=== PATIENT | male | born 1940 | race Caucasian/White ===

== ENCOUNTER 2016-12-05 19:32 | Emergency (ER) | payer OTHER, MEDICARE ==
[~2016-12-05] VITALS: Ht 170.2 cm; Wt 96.2 kg
[~2016-12-05 19:32] MED LIST: ASPIRIN 32325 MG/TAB PO; FUROSEMIDE20 MG PO; LIPITOR 80MG80 MG PO; LISINOPRIL-HYDR1 TA1 PO; LOPRESSOR100 M1 PO; LOPRESSOR100 MG PO; NIASPAN500 MG PO; NIFEDIAC CC60 MG PO; NITROGLYCERIN0.4 M1 SL; NITROGLYCERIN0.4 MG SL; NORCO 325 MG-51 TA1 PO; ZITHROMAX 250M250 MG PO; ZYLOPRIM 300MG300 MG PO
[2016-12-05] MEDS ORDERED: LOW DOSE ASPIRI81 M1 PO (20:03)
[2016-12-05] MEDS ORDERED: LASIX20 M1 PO (20:03)
[2016-12-05] MEDS ORDERED: ZYLOPRIM300 MG PO (20:04)
[2016-12-05] MEDS ORDERED: METOPROLOL SUCC25 M1 (20:04)
[2016-12-05] MEDS ORDERED: LIPITOR 40MG TA40 MG PO (20:05)
[2016-12-05] MEDS ORDERED: ZESTORETIC 20-1 EACH PO (20:05)
[2016-12-05] MEDS ORDERED: TOPROL XL100 MG PO (21:02)
[2016-12-05 23:06] VITALS: BP 146/69
== END 2016-12-05 23:06 | disposition home or self-care (01) ==
LOC: ED 19:32
DX: R07.9 Chest pain, unspecified (principal); R06.02 Shortness of breath; I10 Essential (primary) hypertension; I25.10 Atherosclerotic heart disease of native coronary artery without angina pectoris; Z95.1 Presence of aortocoronary bypass graft; Z95.5 Presence of coronary angioplasty implant and graft; Z87.891 Personal history of nicotine dependence; I25.2 Old myocardial infarction; Z86.73 Personal history of transient ischemic attack (TIA), and cerebral infarction without residual deficits; Z96.643 Presence of artificial hip joint, bilateral; Z86.39 Personal history of other endocrine, nutritional and metabolic disease; R00.1 Bradycardia, unspecified

== ENCOUNTER → 2017-07-23 | Outpatient (CLI) | payer OTHER, MEDICARE ==
[~2017-07-23] MED LIST changes: +LASIX20 M1 PO; +LIPITOR 40MG TA40 MG PO; +LOW DOSE ASPIRI81 M1 PO; +METOPROLOL SUCC25 M1; +TOPROL XL100 MG PO; +ZESTORETIC 20-1 EACH PO; +ZYLOPRIM300 MG PO
== END ==
LOC: RAD 12:53
DX: I65.23 Occlusion and stenosis of bilateral carotid arteries (principal); I25.10 Atherosclerotic heart disease of native coronary artery without angina pectoris; E78.5 Hyperlipidemia, unspecified; I10 Essential (primary) hypertension; Z86.73 Personal history of transient ischemic attack (TIA), and cerebral infarction without residual deficits

== ENCOUNTER → 2017-07-30 | Outpatient (CLI) | payer OTHER, MEDICARE ==
[2017-07-30 13:52] LABS: EOS # 0.4 (0.04-0.40); EOS % 3.8 % (0.0-4.0); HEMOGLOBIN 11.6 g/dL (13.5-18.0); LYMPH# 2.8 (1.50-4.00); MEAN CELL VOLUME 94 fl (78-100); MEAN CORPUSCULAR HEMOGLOBIN 29 pg (27-31); MEAN CORPUSCULAR HGB CONC 31 g/dL (33-37); MONO # 0.9 (0.20-0.80); NEU # 6.9 (1.40-6.50); PLATELET COUNT 235 K/mm3 (130-400); RED BLOOD COUNT 4.06 M/mm3 (4.20-5.60); RED CELL DISTRIBUTION WIDTH 14.6 % (11.5-14.5)
[2017-07-30 14:08] LABS: ALBUMIN 4.1 g/dL (3.5-5.0); BUN/CREATININE RATIO 30.2 (6.0-26.0); CALCIUM 9.4 mg/dL (8.4-10.2); POTASSIUM 3.8 mmol/L (3.6-5.0); TOTAL BILIRUBIN 0.3 mg/dL (0.2-1.3); TOTAL PROTEIN 7.8 g/dL (6.3-8.2)
== END ==
LOC: LAB 13:33
PROVIDERS: Family Medicine
DX: E66.9 Obesity, unspecified (principal); E11.9 Type 2 diabetes mellitus without complications

== ENCOUNTER → 2017-08-05 | Outpatient (CLI) | payer OTHER, MEDICARE | LOC: LAB 11:49 | DX: R05 Cough (principal) ==

== ENCOUNTER 2018-05-13 22:20 | Emergency (ER) | payer OTHER, MEDICARE ==
[~2018-05-13] VITALS: Ht 170.2 cm; Wt 90.9 kg
[2018-05-13 22:55] LABS: EOS # 0.5 (0.04-0.40); EOS % 4.3 % (0.0-4.0); HEMATOCRIT 37.5 % (42.0-52.0); HEMOGLOBIN 12.3 g/dL (13.5-18.0); LYMPH# 3.1 (1.50-4.00); MEAN CELL VOLUME 92 fl (78-100); MEAN CORPUSCULAR HEMOGLOBIN 30 pg (27-31); MEAN CORPUSCULAR HGB CONC 33 g/dL (33-37); MEAN PLATELET VOLUME 12.1 fl (7.4-10.4); NEU # 7.3 (1.40-6.50); PLATELET COUNT 213 K/mm3 (130-400); RED BLOOD COUNT 4.09 M/mm3 (4.20-5.60); RED CELL DISTRIBUTION WIDTH 14.9 % (11.5-14.5)
[2018-05-13] MEDS ORDERED: METOPROLOL TAR100 M1 PO (23:00)
[2018-05-13] MEDS ORDERED: MEDI-FIRST ASP325 MG PO (23:02)
[2018-05-13] MEDS ORDERED: LIPITOR 80MG80 MG PO (23:02)
[2018-05-13] MEDS ORDERED: LASIX20 M1 PO (23:03)
[2018-05-13] MEDS ORDERED: ZESTORETIC 20-1 EACH PO (23:03)
[2018-05-13] MEDS ORDERED: ZYLOPRIM300 MG PO (23:04)
[2018-05-13] MEDS ORDERED: INDDOCIN PO (23:05)
[2018-05-13] MEDS ORDERED: NORCO 325 MG-51 TA1 PO (23:05)
[2018-05-13] MEDS ORDERED: COLACE100 M1 PO (23:06)
[2018-05-13] MEDS ORDERED: ZESTRIL5 M1 PO (23:06)
[2018-05-13 23:11] LABS: ALBUMIN 4.1 g/dL (3.5-5.0); CALCIUM 9.7 mg/dL (8.4-10.2); POTASSIUM 3.3 mmol/L (3.6-5.0); TOTAL BILIRUBIN 0.7 mg/dL (0.2-1.3); TOTAL PROTEIN 7.4 g/dL (6.3-8.2)
[2018-05-13 23:24] LABS: TROPONIN-I < 0.03 ng/mL (0.00-0.06)
[2018-05-13 23:45] LABS: PARTIAL THROMBOPLASTIN TIME 22.3 SECONDS (21.0-32.0); PROTHROMBIN TIME 10.4 SECONDS (9.0-12.0)
[2018-05-13 23:47] LABS: D-DIMER 0.67 mg/L FEU (0.15-0.50)
[2018-05-14 00:01] LABS: URINE APPEARANCE HAZY; URINE BILIRUBIN NEGATIVE (NEGATIVE); URINE BLOOD NEGATIVE (NEGATIVE); URINE COLOR YELLOW; URINE GLUCOSE NEGATIVE (NEGATIVE); URINE KETONE NEGATIVE (NEGATIVE); URINE LEUKOCYTE ESTERASE NEGATIVE (NEGATIVE); URINE MUCUS PRESENT (NOT PRESENT); URINE NITRATE NEGATIVE (NEGATIVE); URINE PROTEIN(semi-quant) NEGATIVE (NEGATIVE); URINE UROBILINOGEN NORMAL (NORMAL); URINE WBC 0-1 /hpf (0-3)
[2018-05-14] MEDS ORDERED: CEFDINIR300 MG PO (02:26)
[2018-05-14] MEDS ORDERED: POTASSIUM CHLO10 ME6 PO (02:26)
[2018-05-14 02:37] VITALS: BP 124/60
== END 2018-05-14 02:37 | disposition home or self-care (01) ==
LOC: ED 22:20
PROVIDERS: Physician Assistant
DX: J40 Bronchitis, not specified as acute or chronic (principal); E87.6 Hypokalemia; I25.10 Atherosclerotic heart disease of native coronary artery without angina pectoris; Z87.891 Personal history of nicotine dependence; I25.2 Old myocardial infarction; E78.5 Hyperlipidemia, unspecified; Z95.5 Presence of coronary angioplasty implant and graft; Z95.1 Presence of aortocoronary bypass graft; Z79.82 Long term (current) use of aspirin; Z79.899 Other long term (current) drug therapy
CPT/HCPCS: Q9967

== ENCOUNTER → 2018-06-03 | Outpatient (CLI) | payer OTHER, MEDICARE ==
[2018-05-14 02:37] VITALS: BP 124/60
[~2018-06-03] MED LIST changes: +CEFDINIR300 MG PO; +COLACE100 M1 PO; +INDDOCIN PO; +MEDI-FIRST ASP325 MG PO; +METOPROLOL TAR100 M1 PO; +POTASSIUM CHLO10 ME6 PO; +ZESTRIL5 M1 PO
[2018-06-03 10:23] LABS: BASO # 0.1 (0.02-0.10); EOS # 0.6 (0.04-0.40); EOS % 4.5 % (0.0-4.0); HEMATOCRIT 39.9 % (42.0-52.0); HEMOGLOBIN 12.6 g/dL (13.5-18.0); MEAN CELL VOLUME 93 fl (78-100); MEAN CORPUSCULAR HEMOGLOBIN 29 pg (27-31); MEAN CORPUSCULAR HGB CONC 32 g/dL (33-37); NEU # 7.8 (1.40-6.50); PLATELET COUNT 215 K/mm3 (130-400); RED BLOOD COUNT 4.28 M/mm3 (4.20-5.60); RED CELL DISTRIBUTION WIDTH 14.9 % (11.5-14.5); WHITE BLOOD COUNT 12.5 K/mm3 (4.8-10.8)
[2018-06-03 10:51] LABS: MEAN PLATELET VOLUME 12.2 fl (7.4-10.4)
[2018-06-03 11:11] LABS: ALBUMIN 4.4 g/dL (3.5-5.0); CALCIUM 9.7 mg/dL (8.4-10.2); POTASSIUM 4.2 mmol/L (3.6-5.0); TOTAL BILIRUBIN 0.5 mg/dL (0.2-1.3); TOTAL PROTEIN 7.6 g/dL (6.3-8.2)
== END ==
LOC: LAB 10:06
PROVIDERS: Family Medicine
DX: M1A.9XX0 Chronic gout, unspecified, without tophus (tophi) (principal); E11.9 Type 2 diabetes mellitus without complications; E78.5 Hyperlipidemia, unspecified

== ENCOUNTER → 2018-08-21 | Outpatient (CLI) | payer OTHER, MEDICARE | LOC: CARDREHAB 07:37 | DX: E78.2 Mixed hyperlipidemia (principal); I25.10 Atherosclerotic heart disease of native coronary artery without angina pectoris | CPT/HCPCS: A9500 ==

== ENCOUNTER → 2018-11-11 | Outpatient (CLI) | payer OTHER, MEDICARE ==
[2018-11-11 14:55] LABS: EOS # 0.5 (0.04-0.40); EOS % 4.4 % (0.0-4.0); HEMATOCRIT 40.3 % (42.0-52.0); HEMOGLOBIN 12.6 g/dL (13.5-18.0); LYMPH# 3.1 (1.50-4.00); MEAN CELL VOLUME 92 fl (78-100); MEAN CORPUSCULAR HEMOGLOBIN 29 pg (27-31); MEAN CORPUSCULAR HGB CONC 31 g/dL (33-37); NEU # 6.2 (1.40-6.50); PLATELET COUNT 201 K/mm3 (130-400); RED BLOOD COUNT 4.39 M/mm3 (4.20-5.60); WHITE BLOOD COUNT 10.8 K/mm3 (4.8-10.8)
[2018-11-11 15:00] LABS: MEAN PLATELET VOLUME 12.2 fl (7.4-10.4)
[2018-11-11 15:14] LABS: CALCIUM 10.2 mg/dL (8.8-10.0); POTASSIUM 3.8 mmol/L (3.5-5.1); TOTAL BILIRUBIN 0.5 mg/dL (0.2-1.2); TOTAL PROTEIN 7.5 g/dL (6.2-8.1)
== END ==
LOC: LAB 14:28
PROVIDERS: Family Medicine
DX: Z12.5 Encounter for screening for malignant neoplasm of prostate (principal); Z87.438 Personal history of other diseases of male genital organs; R53.83 Other fatigue

== ENCOUNTER → 2018-11-30 | Day surgery (SDC) | payer OTHER, MEDICARE | LOC: MSO 08:50 | DX: K57.30 Diverticulosis of large intestine without perforation or abscess without bleeding (principal); K92.1 Melena; I25.10 Atherosclerotic heart disease of native coronary artery without angina pectoris; I10 Essential (primary) hypertension; E11.9 Type 2 diabetes mellitus without complications; G47.33 Obstructive sleep apnea (adult) (pediatric); Z87.891 Personal history of nicotine dependence; Z95.1 Presence of aortocoronary bypass graft; Z79.82 Long term (current) use of aspirin | CPT/HCPCS: 00812; J2310; J2704; J3010; J7030 ==

== ENCOUNTER 2019-03-27 11:09 | Emergency (ER) | payer OTHER, MEDICARE ==
[~2019-03-27] VITALS: Ht 170.2 cm; Wt 95.5 kg
[2019-03-27 12:03] LABS: EOS # 0.5 (0.04-0.40); EOS % 4.3 % (0.0-4.0); HEMATOCRIT 37.3 % (42.0-52.0); HEMOGLOBIN 11.9 g/dL (13.5-18.0); LYMPH# 2.8 (1.50-4.00); MEAN CELL VOLUME 93 fl (78-100); MEAN CORPUSCULAR HEMOGLOBIN 30 pg (27-31); MEAN CORPUSCULAR HGB CONC 32 g/dL (33-37); MONO # 0.9 (0.20-0.80); NEU # 6.4 (1.40-6.50); PLATELET COUNT 194 K/mm3 (130-400); RED BLOOD COUNT 4.01 M/mm3 (4.20-5.60); RED CELL DISTRIBUTION WIDTH 14.8 % (11.5-14.5); WHITE BLOOD COUNT 10.6 K/mm3 (4.8-10.8)
[2019-03-27 12:11] LABS: MEAN PLATELET VOLUME 12.5 fl (7.4-10.4)
[2019-03-27 12:16] LABS: D-DIMER 0.82 mg/L FEU (0.15-0.50)
[2019-03-27 12:24] LABS: ALBUMIN 3.6 g/dL (3.4-4.8)
[2019-03-27 12:25] LABS: CALCIUM 9.1 mg/dL (8.3-10.5)
[2019-03-27 12:27] LABS: TOTAL PROTEIN 6.6 g/dL (6.2-8.1)
[2019-03-27 12:28] LABS: TOTAL BILIRUBIN 0.4 mg/dL (0.2-1.2)
[2019-03-27 13:40] VITALS: BP 134/80
== END 2019-03-27 13:40 | disposition home or self-care (01) ==
LOC: ED 11:09
PROVIDERS: Family Medicine
DX: I25.10 Atherosclerotic heart disease of native coronary artery without angina pectoris (principal); I11.0 Hypertensive heart disease with heart failure; I50.1 Left ventricular failure, unspecified; E78.5 Hyperlipidemia, unspecified; G47.30 Sleep apnea, unspecified; M10.9 Gout, unspecified; Z98.890 Other specified postprocedural states

== ENCOUNTER 2019-06-18 08:51 | Emergency (ER) | payer OTHER, MEDICARE ==
[~2019-06-18] VITALS: Ht 170.2 cm; Wt 90.3 kg
[2019-06-18 09:01] VITALS: BP 122/52
[2019-06-18] MEDS ORDERED: POTASSIUM CHLO10 ME7 PO (09:14)
[2019-06-18 09:36] LABS: EOS # 0.5 (0.04-0.40); HEMATOCRIT 36.6 % (42.0-52.0); HEMOGLOBIN 11.3 g/dL (13.5-18.0); LYMPH# 2.9 (1.50-4.00); MEAN CELL VOLUME 94 fl (78-100); MEAN CORPUSCULAR HEMOGLOBIN 29 pg (27-31); MEAN CORPUSCULAR HGB CONC 31 g/dL (33-37); NEU # 4.8 (1.40-6.50); PLATELET COUNT 188 K/mm3 (130-400); RED BLOOD COUNT 3.91 M/mm3 (4.20-5.60); RED CELL DISTRIBUTION WIDTH 15.2 % (11.5-14.5); WHITE BLOOD COUNT 9.2 K/mm3 (4.8-10.8)
[2019-06-18 09:37] LABS: EOS % 5.4 % (0.0-4.0); MEAN PLATELET VOLUME 12.2 fl (7.4-10.4)
[2019-06-18] MEDS ORDERED: GOOD NEIGHBOR P20 M1 PO (10:07)
== END 2019-06-18 10:22 | disposition home or self-care (01) ==
LOC: ED 08:51
PROVIDERS: Family Medicine
DX: K21.9 Gastro-esophageal reflux disease without esophagitis (principal); I25.10 Atherosclerotic heart disease of native coronary artery without angina pectoris; I10 Essential (primary) hypertension; E78.5 Hyperlipidemia, unspecified; Z95.5 Presence of coronary angioplasty implant and graft; Z95.1 Presence of aortocoronary bypass graft; Z98.890 Other specified postprocedural states

== ENCOUNTER → 2019-07-14 | Day surgery (SDC) | payer MEDICARE, OTHER ==
[2019-06-18 09:01] VITALS: BP 122/52
[~2019-07-14] MED LIST changes: +GOOD NEIGHBOR P20 M1 PO; +POTASSIUM CHLO10 ME7 PO
== END ==
LOC: MSO 09:37
DX: H26.492 Other secondary cataract, left eye (principal); I11.0 Hypertensive heart disease with heart failure; I50.9 Heart failure, unspecified; Z96.643 Presence of artificial hip joint, bilateral; Z79.82 Long term (current) use of aspirin

== ENCOUNTER → 2019-08-18 | Day surgery (SDC) | payer MEDICARE, OTHER | LOC: MSO 11:06 | DX: H26.491 Other secondary cataract, right eye (principal); I25.2 Old myocardial infarction; I11.0 Hypertensive heart disease with heart failure; I50.9 Heart failure, unspecified; Z79.82 Long term (current) use of aspirin; Z79.899 Other long term (current) drug therapy ==

== ENCOUNTER → 2019-11-01 | Emergency (ER) | payer MEDICARE, OTHER ==
[~2019-11-01] VITALS: Ht 170.2 cm; Wt 90.7 kg
[~2019-11-01] MED LIST changes: +MIRALAX17 GM PO
[2019-11-01 16:23] VITALS: BP 165/92
[2019-11-01 16:43] LABS: BASO # 0.1 (0.02-0.10); EOS # 0.3 (0.04-0.40); EOS % 2.5 % (0.0-4.0); HEMATOCRIT 38.8 % (42.0-52.0); HEMOGLOBIN 11.9 g/dL (13.5-18.0); LYMPH# 2.3 (1.50-4.00); MEAN CELL VOLUME 95 fl (78-100); MEAN CORPUSCULAR HEMOGLOBIN 29 pg (27-31); MEAN CORPUSCULAR HGB CONC 31 g/dL (33-37); MONO # 0.6 (0.20-0.80); PLATELET COUNT 211 K/mm3 (130-400); RED BLOOD COUNT 4.08 M/mm3 (4.20-5.60); RED CELL DISTRIBUTION WIDTH 15.1 % (11.5-14.5); WHITE BLOOD COUNT 12.6 K/mm3 (4.8-10.8)
[2019-11-01 16:45] LABS: ALBUMIN 4.2 g/dL (3.4-4.8)
[2019-11-01 16:46] LABS: SODIUM 142 mmol/L (136-145)
[2019-11-01 16:47] LABS: CALCIUM 9.8 mg/dL (8.3-10.5)
[2019-11-01 16:48] LABS: GLUCOSE 119 mg/dL (75-110); TOTAL PROTEIN 8.1 g/dL (6.2-8.1)
[2019-11-01 16:49] LABS: CARBON DIOXIDE 27 mmol/L (23-31)
[2019-11-01 16:50] LABS: PARTIAL THROMBOPLASTIN TIME 21.6 SECONDS (21.0-32.0); PROTHROMBIN TIME 10.3 SECONDS (9.0-12.0); TOTAL BILIRUBIN 0.5 mg/dL (0.2-1.2)
[2019-11-01 16:53] LABS: AST-SGOT 21 U/L (5-34)
[2019-11-01 16:54] LABS: ALT/SGPT 12 U/L (0-55); MEAN PLATELET VOLUME 12.3 fl (7.4-10.4); NEU # 9.3 (1.40-6.50)
[2019-11-01 17:02] LABS: URINE APPEARANCE CLEAR; URINE COLOR LT YELLOW
[2019-11-01 17:02] LABS: TROPONIN-I < 0.03 ng/mL (<0.030)
[2019-11-01 17:03] LABS: URINE BILIRUBIN NEGATIVE (NEGATIVE); URINE BLOOD NEGATIVE (NEGATIVE); URINE GLUCOSE NEGATIVE (NEGATIVE); URINE KETONE NEGATIVE (NEGATIVE); URINE LEUKOCYTE ESTERASE NEGATIVE (NEGATIVE); URINE NITRATE NEGATIVE (NEGATIVE); URINE PROTEIN(semi-quant) NEGATIVE (NEGATIVE); URINE UROBILINOGEN NORMAL (NORMAL); URINE WBC 0 /hpf (0-3)
== END ==
LOC: ED 15:41
PROVIDERS: Nurse Practitioner
DX: R11.0 Nausea (principal); R53.81 Other malaise; R42 Dizziness and giddiness; I10 Essential (primary) hypertension; E78.5 Hyperlipidemia, unspecified; I25.10 Atherosclerotic heart disease of native coronary artery without angina pectoris; Z87.891 Personal history of nicotine dependence
CPT/HCPCS: J2405; J7040

== ENCOUNTER → 2019-11-08 | Outpatient (CLI) | payer MEDICARE, OTHER ==
[2019-11-01 16:23] VITALS: BP 165/92
[2019-11-08 13:17] LABS: POTASSIUM 4.1 mmol/L (3.5-5.1)
[2019-11-08 13:19] LABS: CALCIUM 9.5 mg/dL (8.3-10.5)
== END ==
LOC: LAB 12:48 → RAD 12:48
PROVIDERS: Family Medicine
DX: M51.36 Other intervertebral disc degeneration, lumbar region (principal); I10 Essential (primary) hypertension; I25.10 Atherosclerotic heart disease of native coronary artery without angina pectoris; E11.9 Type 2 diabetes mellitus without complications; Z96.641 Presence of right artificial hip joint

== ENCOUNTER 2019-12-21 09:00 | Outpatient (RCR) | payer MEDICARE, OTHER ==
[2019-11-01 16:23] VITALS: BP 165/92
== END 2019-12-21 09:30 | disposition still patient (30) ==
LOC: PT 09:00
DX: M54.5 Low back pain (principal); I10 Essential (primary) hypertension; I25.10 Atherosclerotic heart disease of native coronary artery without angina pectoris; E11.9 Type 2 diabetes mellitus without complications

== ENCOUNTER 2020-03-30 22:18 | Emergency (ER) | payer MEDICARE, OTHER ==
[~2020-03-30] VITALS: Ht 170.2 cm; Wt 86.2 kg
[2020-03-30 23:28] LABS: EOS # 0.4 (0.04-0.40); EOS % 3.6 % (0.0-4.0); HEMATOCRIT 38.8 % (42.0-52.0); HEMOGLOBIN 11.9 g/dL (13.5-18.0); LYMPH# 2.8 (1.50-4.00); MEAN CELL VOLUME 89 fl (78-100); MEAN CORPUSCULAR HEMOGLOBIN 27 pg (27-31); MEAN CORPUSCULAR HGB CONC 31 g/dL (33-37); MEAN PLATELET VOLUME 11.7 fl (7.4-10.4); PLATELET COUNT 220 K/mm3 (130-400); RED BLOOD COUNT 4.34 M/mm3 (4.20-5.60); RED CELL DISTRIBUTION WIDTH 15.3 % (11.5-14.5); WHITE BLOOD COUNT 11.3 K/mm3 (4.8-10.8)
[2020-03-30 23:34] LABS: ALBUMIN 3.6 g/dL (3.4-4.8)
[2020-03-30 23:35] LABS: POTASSIUM 3.8 mmol/L (3.5-5.1)
[2020-03-30 23:36] LABS: CALCIUM 9.1 mg/dL (8.3-10.5)
[2020-03-30 23:37] LABS: TOTAL PROTEIN 6.8 g/dL (6.2-8.1)
[2020-03-30 23:39] LABS: TOTAL BILIRUBIN 0.5 mg/dL (0.2-1.2)
[2020-03-31 00:12] VITALS: BP 154/74
== END 2020-03-31 00:15 | disposition home or self-care (01) ==
LOC: ED 22:18
PROVIDERS: Nurse Practitioner Primary Care
DX: G44.89 Other headache syndrome (principal); I10 Essential (primary) hypertension; I25.10 Atherosclerotic heart disease of native coronary artery without angina pectoris; Z86.73 Personal history of transient ischemic attack (TIA), and cerebral infarction without residual deficits; Z95.5 Presence of coronary angioplasty implant and graft; Z79.82 Long term (current) use of aspirin

== ENCOUNTER 2020-05-23 14:15 | Observation (INO) | payer MEDICARE, OTHER ==
[~2020-05-23] VITALS: Ht 170.2 cm; Wt 85.3 kg
[2020-05-23 15:21] LABS: EOS # 0.4 (0.04-0.40); EOS % 4.9 % (0.0-4.0); HEMATOCRIT 46.5 % (42.0-52.0); HEMOGLOBIN 14.6 g/dL (13.5-18.0); MEAN CELL VOLUME 89 fl (78-100); MEAN CORPUSCULAR HEMOGLOBIN 28 pg (27-31); MEAN CORPUSCULAR HGB CONC 31 g/dL (33-37); MONO # 0.6 (0.20-0.80); NEU # 4.7 (1.40-6.50); PLATELET COUNT 182 K/mm3 (130-400); RED BLOOD COUNT 5.23 M/mm3 (4.20-5.60); WHITE BLOOD COUNT 7.7 K/mm3 (4.8-10.8)
[2020-05-23 15:23] LABS: ALBUMIN 3.7 g/dL (3.4-4.8); POTASSIUM 3.8 mmol/L (3.5-5.1)
[2020-05-23 15:24] LABS: CALCIUM 9.4 mg/dL (8.3-10.5); MEAN PLATELET VOLUME 12.4 fl (7.4-10.4)
[2020-05-23 15:26] LABS: TOTAL PROTEIN 7.2 g/dL (6.2-8.1)
[2020-05-23 15:27] LABS: TOTAL BILIRUBIN 0.6 mg/dL (0.2-1.2)
[2020-05-23 15:38] LABS: TROPONIN-I 0.04 ng/mL (<0.030)
[2020-05-23 16:20] LABS: D-DIMER 0.98 mg/L FEU (0.15-0.50)
[2020-05-23 17:34] LABS: URINE APPEARANCE CLEAR; URINE COLOR YELLOW; URINE PROTEIN(semi-quant) TRACE mg/dL (NEGATIVE)
[2020-05-23 17:35] LABS: URINE BILIRUBIN NEGATIVE (NEGATIVE); URINE BLOOD NEGATIVE (NEGATIVE); URINE GLUCOSE NEGATIVE (NEGATIVE); URINE KETONE NEGATIVE (NEGATIVE); URINE LEUKOCYTE ESTERASE NEGATIVE (NEGATIVE); URINE NITRATE NEGATIVE (NEGATIVE); URINE UROBILINOGEN 1 mg/dL (NORMAL); URINE WBC 0-1 /hpf (0-3)
[2020-05-23] MEDS ORDERED: LASIX20 M1 PO ×2 (17:59)
[2020-05-23 21:44] VITALS: BP 177/75
[2020-05-23 23:25] VITALS: BP 180/91
[2020-05-24 02:15] VITALS: BP 165/58
[2020-05-24 05:14] VITALS: BP 131/52
[2020-05-24 06:33] LABS: POTASSIUM 3.4 mmol/L (3.5-5.1)
[2020-05-24 06:35] LABS: CALCIUM 9.1 mg/dL (8.3-10.5)
[2020-05-24 06:50] LABS: TROPONIN-I 0.04 ng/mL (<0.030)
[2020-05-24 10:09] VITALS: BP 116/50
[2020-05-24 13:52] VITALS: BP 138/60
[2020-05-24] MEDS ORDERED: LOPRESSOR 550 MG/TAB PO (14:12)
[2020-05-24] MEDS ORDERED: POTASSIUM CHLO20 ME3 PO (14:14)
[2020-05-24] MEDS ORDERED: LASIX20 M1 PO (14:17)
== END 2020-05-24 17:06 | disposition home or self-care (01) ==
LOC: ED 14:15 → MED/SURG 19:36
PROVIDERS: ADMIT Nurse Practitioner Family
DX: I11.0 Hypertensive heart disease with heart failure (principal); I50.9 Heart failure, unspecified; I25.10 Atherosclerotic heart disease of native coronary artery without angina pectoris; J44.9 Chronic obstructive pulmonary disease, unspecified; E87.6 Hypokalemia; Z20.828 Contact with and (suspected) exposure to other viral communicable diseases; Z79.82 Long term (current) use of aspirin; Z86.73 Personal history of transient ischemic attack (TIA), and cerebral infarction without residual deficits; E78.5 Hyperlipidemia, unspecified; M10.9 Gout, unspecified; E11.9 Type 2 diabetes mellitus without complications; Z96.642 Presence of left artificial hip joint; F17.210 Nicotine dependence, cigarettes, uncomplicated
CPT/HCPCS: G0378; J1940; Q9967

== ENCOUNTER → 2020-11-29 | Outpatient (CLI) | payer MEDICARE, OTHER ==
[~2020-11-29] MED LIST changes: +LOPRESSOR 225 MG/TAB PO; +LOPRESSOR 550 MG/TAB PO; +POTASSIUM CHLO20 ME3 PO; +POTASSIUM CHLO20 ME4 PO
[2020-11-29 09:38] LABS: BASO # 0.05 (0.02-0.10); EOS # 0.58 (0.04-0.40); EOS % 4.8 % (0.0-4.0); HEMATOCRIT 33.7 % (42.0-52.0); HEMOGLOBIN 10.8 g/dL (13.5-18.0); LYMPH# 2.62 (1.50-4.00); MEAN CELL VOLUME 94 fl (78-100); MEAN CORPUSCULAR HEMOGLOBIN 30 pg (27-31); MEAN CORPUSCULAR HGB CONC 32 g/dL (33-37); MONO # 0.72 (0.20-0.80); NEU # 8.09 (1.40-6.50); PLATELET COUNT 192 K/mm3 (130-400); RED BLOOD COUNT 3.58 M/mm3 (4.20-5.60); RED CELL DISTRIBUTION WIDTH 14.7 % (11.5-14.5); WHITE BLOOD COUNT 12.1 K/mm3 (4.8-10.8)
[2020-11-29 09:43] LABS: ALBUMIN 3.7 g/dL (3.4-4.8); POTASSIUM 4.1 mmol/L (3.5-5.1)
[2020-11-29 09:44] LABS: CALCIUM 9.5 mg/dL (8.3-10.5)
[2020-11-29 09:46] LABS: TOTAL PROTEIN 7.4 g/dL (6.2-8.1)
[2020-11-29 09:47] LABS: TOTAL BILIRUBIN 0.3 mg/dL (0.2-1.2)
== END ==
LOC: LAB 09:16
PROVIDERS: Family Medicine
DX: Z00.00 Encounter for general adult medical examination without abnormal findings (principal); Z12.5 Encounter for screening for malignant neoplasm of prostate; E78.5 Hyperlipidemia, unspecified; E11.9 Type 2 diabetes mellitus without complications

== ENCOUNTER → 2021-01-24 | Outpatient (CLI) | payer MEDICARE, OTHER ==
[2021-01-24 12:11] LABS: BASO # 0.09 (0.02-0.10); EOS # 0.71 (0.04-0.40); EOS % 5.7 % (0.0-4.0); HEMATOCRIT 37.3 % (42.0-52.0); HEMOGLOBIN 11.5 g/dL (13.5-18.0); LYMPH# 3.82 (1.50-4.00); MEAN CELL VOLUME 95 fl (78-100); MEAN CORPUSCULAR HEMOGLOBIN 29 pg (27-31); MEAN CORPUSCULAR HGB CONC 31 g/dL (33-37); MEAN PLATELET VOLUME 11.8 fl (7.4-10.4); MONO # 0.81 (0.20-0.80); NEU # 7.05 (1.40-6.50); PLATELET COUNT 221 K/mm3 (130-400); RED BLOOD COUNT 3.93 M/mm3 (4.20-5.60); WHITE BLOOD COUNT 12.5 K/mm3 (4.8-10.8)
[2021-01-24 12:15] LABS: ALBUMIN 3.9 g/dL (3.4-4.8); POTASSIUM 4.6 mmol/L (3.5-5.1)
[2021-01-24 12:16] LABS: CALCIUM 9.8 mg/dL (8.3-10.5)
[2021-01-24 12:18] LABS: TOTAL PROTEIN 7.7 g/dL (6.2-8.1)
[2021-01-24 12:19] LABS: TOTAL BILIRUBIN 0.4 mg/dL (0.2-1.2)
== END ==
LOC: LAB 11:50
PROVIDERS: Family Medicine
DX: D64.9 Anemia, unspecified (principal); E87.6 Hypokalemia

== ENCOUNTER → 2021-02-20 | Outpatient (CLI) | payer MEDICARE, OTHER | LOC: RAD 07:53 | DX: N18.32 Chronic kidney disease, stage 3b (principal) ==

== ENCOUNTER → 2021-04-09 | Outpatient (CLI) | payer MEDICARE, OTHER ==
[2021-04-09 11:00] LABS: URINE WBC 0 /hpf (0-3)
[2021-04-09 11:36] LABS: ALBUMIN 3.5 g/dL (3.4-4.8)
[2021-04-09 11:37] LABS: POTASSIUM 3.9 mmol/L (3.5-5.1)
[2021-04-09 11:38] LABS: CALCIUM 9.8 mg/dL (8.3-10.5)
[2021-04-09 11:59] LABS: URINE APPEARANCE CLEAR; URINE BILIRUBIN NEGATIVE (NEGATIVE); URINE BLOOD NEGATIVE (NEGATIVE); URINE COLOR YELLOW; URINE GLUCOSE NEGATIVE (NEGATIVE); URINE KETONE NEGATIVE (NEGATIVE); URINE LEUKOCYTE ESTERASE NEGATIVE (NEGATIVE); URINE NITRATE NEGATIVE (NEGATIVE); URINE PROTEIN(semi-quant) NEGATIVE (NEGATIVE); URINE UROBILINOGEN NORMAL (NORMAL)
[2021-04-10 14:20] LABS: CREATININE OTHER SOURCE 71 mg/dL (())
== END ==
LOC: LAB 10:40
PROVIDERS: Internal Medicine Nephrology
DX: E11.21 Type 2 diabetes mellitus with diabetic nephropathy (principal); N40.1 Benign prostatic hyperplasia with lower urinary tract symptoms; N18.32 Chronic kidney disease, stage 3b; I50.22 Chronic systolic (congestive) heart failure

== ENCOUNTER 2021-05-21 08:50 | Emergency (ER) | payer MEDICARE, OTHER ==
[~2021-05-21 08:50] MED LIST changes: -LOPRESSOR 225 MG/TAB PO; -POTASSIUM CHLO20 ME4 PO
[2021-05-21] MEDS ORDERED: LOPRESSOR 225 MG/TAB PO (08:59)
[2021-05-21] MEDS ORDERED: FUROSEMIDE20 MG PO (09:00)
[2021-05-21] MEDS ORDERED: POTASSIUM CHLO20 ME4 PO (09:00)
[2021-05-21 09:35] LABS: BASO # 0.07 K/mm3 (0.02-0.10); EOS # 0.65 K/mm3 (0.04-0.40); EOS % 5.2 % (0.0-4.0); HEMATOCRIT 31.5 % (42.0-52.0); HEMOGLOBIN 9.9 g/dL (13.5-18.0); LYMPH# 2.64 K/mm3 (1.50-4.00); MEAN CELL VOLUME 94 fl (78-100); MEAN CORPUSCULAR HEMOGLOBIN 29 pg (27-31); MEAN CORPUSCULAR HGB CONC 31 g/dL (33-37); MEAN PLATELET VOLUME 12.7 fl (7.4-10.4); MONO # 0.62 K/mm3 (0.20-0.80); PLATELET COUNT 213 K/mm3 (130-400); RED BLOOD COUNT 3.37 M/mm3 (4.20-5.60); RED CELL DISTRIBUTION WIDTH 15.4 % (11.5-14.5); WHITE BLOOD COUNT 12.5 K/mm3 (4.8-10.8)
[2021-05-21 09:48] LABS: ALBUMIN 3.7 g/dL (3.4-4.8); POTASSIUM 4.3 mmol/L (3.5-5.1)
[2021-05-21 09:49] LABS: CALCIUM 9.6 mg/dL (8.3-10.5)
[2021-05-21 09:50] LABS: TOTAL PROTEIN 7.3 g/dL (6.2-8.1)
[2021-05-21 09:52] LABS: TOTAL BILIRUBIN 0.3 mg/dL (0.2-1.2)
[2021-05-21 09:58] LABS: PARTIAL THROMBOPLASTIN TIME 21.6 SECONDS (21.0-32.0); PROTHROMBIN TIME 9.9 SECONDS (9.0-12.0)
[2021-05-21 10:04] LABS: TROPONIN-I 0.04 ng/mL (<0.030)
[2021-05-21 12:06] LABS: URINE APPEARANCE CLEAR; URINE BILIRUBIN NEGATIVE (NEGATIVE); URINE BLOOD NEGATIVE (NEGATIVE); URINE COLOR YELLOW; URINE GLUCOSE NEGATIVE (NEGATIVE); URINE KETONE NEGATIVE (NEGATIVE); URINE LEUKOCYTE ESTERASE NEGATIVE (NEGATIVE); URINE MUCUS PRESENT (NOT PRESENT); URINE NITRATE NEGATIVE (NEGATIVE); URINE PROTEIN(semi-quant) NEGATIVE (NEGATIVE); URINE UROBILINOGEN NORMAL (NORMAL)
[2021-05-21 15:00] VITALS: BP 123/57
== END 2021-05-21 14:35 | disposition short-term general hospital (02) ==
LOC: ED 08:50
PROVIDERS: Nurse Practitioner
DX: I21.3 ST elevation (STEMI) myocardial infarction of unspecified site (principal); I10 Essential (primary) hypertension; I25.10 Atherosclerotic heart disease of native coronary artery without angina pectoris; E78.2 Mixed hyperlipidemia; E66.9 Obesity, unspecified; M10.9 Gout, unspecified; E11.9 Type 2 diabetes mellitus without complications; Z20.822 Contact with and (suspected) exposure to COVID-19; Z87.891 Personal history of nicotine dependence; Z79.82 Long term (current) use of aspirin; Z79.899 Other long term (current) drug therapy